=== PATIENT | male | born 1980 | race Two or more races ===

== ENCOUNTER 2023-09-30 14:47 | Emergency (ER) | payer OTHER ==
[~2023-09-30] VITALS: Ht 182.9 cm; Wt 74.8 kg
[2023-09-30 15:31] VITALS: BP 123/90
[2023-09-30] MEDS ORDERED: OCUFLOX510 RIGHTEAR (19:03)
[2023-09-30] MEDS ORDERED: DOXY100 PO (19:03)
== END 2023-09-30 19:24 | disposition home or self-care (01) ==
LOC: ER 14:47
DX: J18.9 Pneumonia, unspecified organism (principal); H60.391 Other infective otitis externa, right ear; H61.22 Impacted cerumen, left ear; F17.210 Nicotine dependence, cigarettes, uncomplicated; Z59.00 Homelessness unspecified
CPT/HCPCS: 71046; 96372; 99283-25; A9270; J1885